=== PATIENT | female | born 1975 | race Caucasian/White ===

== ENCOUNTER → 2022-07-12 | Day surgery (SDC) | payer MEDICAID ==
[~2022-07-12] VITALS: Ht 175.3 cm; Wt 62.1 kg
[~2022-07-12] MED LIST: ASPI-986 PO; BUPIVACAINE HCL 0.5% (5MG/ML) 50ML ONE; FENTANYL CITRATE/PF 50MCG/ML 2ML VIAL ONE; LACTATED RINGERS 1,000 ML IV SCH; MIDAZOLAM HCL 2 MG/2 ML VIAL ONE; PROPOFOL 200MG/20ML VIAL IV ONE; SKIN ADHESIVE 0.7 GM EA TOP ONE
== END | disposition home or self-care (01) ==
LOC: OR 05:51
PROVIDERS: ATTEND Surgery
DX: R10.819 Abdominal tenderness, unspecified site (principal); D17.1 Benign lipomatous neoplasm of skin and subcutaneous tissue of trunk; F32.9 Major depressive disorder, single episode, unspecified; Z79.899 Other long term (current) drug therapy; Z98.890 Other specified postprocedural states; Z20.822 Contact with and (suspected) exposure to COVID-19
CPT/HCPCS: 21931; 87426; 88304; C9803; J2250; J2704; J3010; J3490